=== PATIENT | male | born 1960 | race Caucasian/White ===

== ENCOUNTER 2019-06-22 08:31 | Emergency (ER) | payer OTHER ==
[~2019-06-22] VITALS: Ht 182.9 cm; Wt 95.3 kg
[2019-06-22 08:39] VITALS: Ht 182.9 cm; Wt 95.3 kg
== END 2019-06-22 14:10 | disposition expired ==
LOC: ED 08:31
DX: I46.9 Cardiac arrest, cause unspecified (principal); I10 Essential (primary) hypertension